=== PATIENT | male | born 1950 | race Caucasian/White ===

== ENCOUNTER 2018-12-29 13:19 | Emergency (ER) | payer OTHER ==
[2018-12-29] MEDS ORDERED: HYDROmorphone 0.5 MG/0.5 ML Syringe IVPUSH ONE (14:17)
[2018-12-29] MEDS ORDERED: Ondansetron 4 MG/2 ML SDV IVPUSH ONE (14:17)
[2018-12-29] MEDS ORDERED: Sodium Chloride 0.9% 1,000 ML IV SCH ×2 (14:30→15:00)
--- NOTE | 2018-12-29 14:32 | EDM.PDOC ---
ED HPI GENERAL MEDICAL PROBLEM - General Chief Complaint: Abdominal Pain Stated Complaint: NAUSEA Time Seen by Provider: 12/29/18 14:29 Source of Information: Reports: Patient History Limitations: Reports: No Limitations - History of Present Illness INITIAL COMMENTS - FREE TEXT/NARRATIVE: pt was workng the garden today. He suddenly developed severe rt flank and back pain He got very sweaty and felt like he was going to pass out. He had 2 or 3 waves of sweats and he still is having the severe pain . He feels at times like he is going to pass out. He has no history of kidney stones. He has a lower than normal temp. Onset: Today, Sudden Duration: Hour(s):, Other (very severe painin the rt flank and lower abdoman. ) Location: Reports: Abdomen Associated Symptoms: Reports: Nausea/Vomiting, Other (pt nearly passed out. ) Right Abdominal Pain Score (Numeric/FACES): 0 - Related Data Allergies Allergy/AdvReac Type Severity Reaction Status Date / Time No Known Allergies Allergy Verified 12/29/18 14:28 Home Meds: Home Meds Aspirin [[place]range Aspirin] 1 tab PO DAILY 12/29/18 [History] Gabapentin [Neurontin] 1 tab PO TID 12/29/18 [History] Lisinopril 0.5 tab PO DAILY 12/29/18 [History] Metoprolol Tartrate 0.5 tab PO BID 12/29/18 [History] Varenicline [Chantix] 1 tab PO BID 12/29/18 [History] atorvaSTATin [Lipitor] 20 mg PO BEDTIME 12/29/18 [History] ED ROS GENERAL - Review of Systems Review Of Systems: See Below Constitutional: Reports: Malaise, Weakness HEENT: Reports: No Symptoms Respiratory: Reports: No Symptoms Cardiovascular: Reports: No Symptoms, Other (pt has been very diaphoretic. ) Endocrine: Reports: No Symptoms GI/Abdominal: Reports: No Symptoms, Nausea : Reports: No Symptoms Musculoskeletal: Reports: No Symptoms Skin: Reports: No Symptoms Neurological: Reports: No Symptoms Psychiatric: Reports: No Symptoms ED EXAM, GI/ABD - Physical Exam Exam: See Below Text/Narrative:: pt arrived with severe rt flank pain and pain in the rt lower abdoman by the bladder. He was diaphoretic and he rated his pain a 9. Exam Limited By: No Limitations General Appearance: Alert, Anxious, Severe Distress, Other (pt was wretching. ) Ears: Normal TMs Nose: Normal Inspection Throat/Mouth: Normal Inspection Head: Atraumatic Neck: Normal Inspection Respiratory/Chest: No Respiratory Distress Cardiovascular: Regular Rate, Rhythm GI/Abdominal Exam: Other (pt is tender in the rt lower abdoman and rt flank area. ) (Male) Exam: Deferred, Other ( scrotum ) Rectal (Males) Exam: Deferred Back Exam: CVA Tenderness (R) Extremities: Normal Inspection Neurological: Alert, Oriented, Normal Cognition Psychiatric: Normal Affect Course - Vital Signs Last Recorded V/S: Last Vital Signs Temp 34.3 C L 12/29/18 14:18 Pulse 68 12/29/18 15:34 Resp 12 12/29/18 15:34 BP 122/83 12/29/18 15:34 Pulse Ox 93 L 12/29/18 15:34 - Orders/Labs/Meds Orders: Active Orders 24 hr Category Date Time Status EKG Documentation Completion [RC] ASDIRECTED Care 12/29/18 14:16 Active UA W/MICROSCOPIC [URIN] Urgent Lab 12/29/18 15:50 Results Sodium Chloride 0.9% [Normal Saline] 1,000 ml Med 12/29/18 14:30 Active IV ASDIRECTED Sodium Chloride 0.9% [Normal Saline] 1,000 ml Med 12/29/18 15:00 Active IV ASDIRECTED EKG 12 Lead [EK] Routine Ther 12/29/18 14:16 Ordered Medication Orders Sodium Chloride (Normal Saline) 1,000 mls @ 999 mls/hr IV ASDIRECTED MIESHA Last Admin: 12/29/18 14:56 Dose: 999 mls/hr Sodium Chloride (Normal Saline) 1,000 mls @ 999 mls/hr IV ASDIRECTED [facility] Labs: Laboratory Tests 12/29/18 12/29/18 12/29/18 Range/Units 14:16 14:39 15:50 WBC 9.7 (4.5-11.0) K/uL RBC 5.23 (4.30-5.90) M/uL Hgb 15.5 H (12.0-15.0) g/dL Hct 47.9 (40.0-54.0) % MCV 92 (80-98) fL MCH 30 (27-31) pg MCHC 32 (32-36) % Plt Count 190 (150-400) K/uL Neut % (Auto) 81 H (36-66) % Lymph % (Auto) 13 L (24-44) % [place] % (Auto) 5 (2-6) % Eos % (Auto) 0 L (2-4) % Baso % (Auto) 0 (0-1) % Sodium 140 (140-148) mmol/L Potassium 4.5 (3.6-5.2) mmol/L Chloride 103 (100-108) mmol/L Carbon Dioxide 28 (21-32) mmol/L Anion Gap 9.0 (5.0-14.0) mmol/L BUN 18 (7-18) mg/dL Creatinine 1.1 (0.8-1.3) mg/dL Est Cr Clr Drug Dosing 70.62 mL/min Estimated GFR (MDRD) > 60 (>60) Glucose 123 H (74-106) mg/dL Calcium 9.0 (8.5-10.1) mg/dL Total Bilirubin 0.6 (0.2-1.0) mg/dL AST 31 (15-37) U/L ALT 44 (12-78) U/L Alkaline Phosphatase 106 (46-116) U/L Total Protein 7.2 (6.4-8.2) g/dL Albumin 3.7 (3.4-5.0) g/dL Globulin 3.5 (2.3-3.5) g/dL Albumin/Globulin Ratio 1.1 L (1.2-2.2) Urine Color Yellow Urine Appearance Clear Urine pH 5.0 (4.5-8.0) Ur Specific Armstrong 1.020 (1.008-1.030) Urine Protein Trace (NEGATIVE) mg/dL Urine Glucose (UA) Normal (NEGATIVE) mg/dL Urine Ketones Negative (NEGATIVE) mg/dL Urine Occult Blood Large (NEGATIVE) Urine Nitrite Negative (NEGAITVE) Urine Bilirubin Negative (NEGATIVE) Urine Urobilinogen Normal (NORMAL) mg/dL Ur Leukocyte Esterase Negative (NEGATIVE) Meds: Medications Generic Name Dose Route Start Last Admin Trade Name Freq PRN Reason Stop Dose Admin Sodium Chloride 1,000 mls @ 999 mls/hr 12/29/18 14:30 12/29/18 14:56 Normal Saline IV 999 mls/hr ASDIRECTED MIESHA Administration Sodium Chloride 1,000 mls @ 999 mls/hr 12/29/18 15:00 Normal Saline IV ASDIRECTED MIESHA Discontinued Medications Generic Name Dose Route Start Last Admin Trade Name Sammy PRN Reason Stop Dose Admin Hydromorphone HCl 0.5 mg 12/29/18 14:17 Dilaudid IVPUSH 12/29/18 14:18 ONETIME ONE Ondansetron HCl 4 mg 12/29/18 14:17 Zofran IVPUSH 12/29/18 14:18 ONETIME ONE - Re-Assessments/Exams Free Text/Narrative Re-Assessment/Exam: 12/29/18 15:32 pt had normal labs and he had a cat scan which showed a mildly dilated rt ureter like he had just passed a stone. He became painfree shortly after he had the Iv started and did not need the pain meds. He no longer is nauseated. Departure - Departure Time of Disposition: 15:37 Disposition: Home, Self-Care 01 Condition: Fair Clinical Impression: Right ureteral stone - Discharge Information Referrals: Mike Camacho MD [Primary Care Provider] - Forms: ED Department Discharge Care Plan Goals: push fluid, call if any problems with pain, - My Orders Last 24 Hours: My Active Orders 12/29/18 14:16 EKG Documentation Completion [RC] ASDIRECTED EKG 12 Lead [EK] Routine 12/29/18 14:30 Sodium Chloride 0.9% [Normal Saline] 1,000 ml IV ASDIRECTED 12/29/18 15:00 Sodium Chloride 0.9% [Normal Saline] 1,000 ml IV ASDIRECTED 12/29/18 15:50 UA W/MICROSCOPIC [URIN] Urgent - Assessment/Plan Last 24 Hours: My Active Orders 12/29/18 14:16 EKG Documentation Completion [RC] ASDIRECTED EKG 12 Lead [EK] Routine 12/29/18 14:30 Sodium Chloride 0.9% [Normal Saline] 1,000 ml IV ASDIRECTED 12/29/18 15:00 Sodium Chloride 0.9% [Normal Saline] 1,000 ml IV ASDIRECTED 12/29/18 15:50 UA W/MICROSCOPIC [URIN] Urgent
--- NOTE | 2018-12-29 15:15 | CRLCT ---
INDICATION: Severe right-sided pain. COMPARISON: None available TECHNIQUE: CT examination of the abdomen and pelvis was performed without contrast enhancement using 3 mm thick axial sections from the lung bases through the pubic symphysis. Oral contrast was not administered. Please note that all CT scans at this facility use dose modulation, iterative reconstruction, and/or weight-based dosing when appropriate to reduce radiation dose to as low as reasonably achievable. FINDINGS: On the right, there is mild right hydroureter extending to the UVJ, with no sign of hydronephrosis. The area of the UVJ is partially obscured by streak artifact from a left hip prosthesis, so a tiny calculus cannot be excluded. The mild ureteral dilatation suggests residual dilatation from recent passage of a calculus. In the abdomen, the unenhanced liver, spleen, pancreas, and adrenals are normal in appearance. There is a nonobstructing 3 millimeter calculus in the lower pole of the left kidney. The unenhanced left kidney is normal in appearance with no sign of left hydronephrosis or hydroureter. The gallbladder is normal in appearance. The abdominal aorta is normal in caliber with no sign of dilatation. There is no sign of retroperitoneal mass or adenopathy. The stomach, loops of small bowel, and colon in the abdomen are normal in appearance. In the pelvis, the appendix is normal in appearance with no sign of inflammatory process. The loops of small bowel and colon in the pelvis are normal in appearance. The prostate is mildly enlarged and is otherwise normal in appearance. The urinary bladder is normal in appearance. There is no sign of pelvic or inguinal mass or adenopathy. There is mild linear density in the right lung base consistent with atelectasis or scarring. The rest of the lung base is clear. There is prominent disc degenerative disease at L1-2, L4-5 and L5-S1. there is moderate disc degenerative disease throughout the rest of the lumbar spine. 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 IMPRESSION: Mild dilatation of the right ureter without a distinct obstructing calculus or mass. No associated right hydronephrosis. Findings suggest mild residual hydroureter from recent passage of a calculus. CT of the abdomen shows a 3 millimeter nonobstructing calculus in the lower pole of the left kidney. No sign of left hydronephrosis or hydroureter. CT of the pelvis shows normal appearance of the appendix. Mild enlargement of the prostate. Please note that all CT scans at this facility use dose modulation, iterative reconstruction, and/or weight-based dosing when appropriate to reduce radiation dose to as low as reasonably achievable. Dictated by Mic Kothari MD @ Dec 29 2018 3:06PM Signed by Dr. Mic Kothari @ Dec 29 2018 3:14PM
== END 2018-12-29 16:05 | disposition home or self-care (01) ==
LOC: JP.ED 13:19
DX: N20.2 Calculus of kidney with calculus of ureter (principal); Z79.899 Other long term (current) drug therapy; Z79.82 Long term (current) use of aspirin
CPT/HCPCS: 36415; 74176; 80053; 81001; 85025; 93005; 96360; 99284; J7030; 93010; 99283